=== PATIENT | female | born 1970 | race Two or more races ===

== ENCOUNTER → 2017-01-03 | Outpatient (REF) | payer OTHER ==
[2017-01-03 12:57] LABS: BASO % 0.6 % (0.0-1.0); EOS # 0.1 K/mm3 (0.0-0.50); EOS % 2.3 % (0.0-3.0); LARGE UNSTAINED CELL # 0.2 K/mm3 (0.0-0.4); LARGE UNSTAINED CELL % 2.6 % (0.0-4.0); LYMPH # 2.1 K/mm3 (1.5-4.5); LYMPH % 35.3 % (24.0-44.0); MEAN CORPUSCULAR HEMOGLOBIN 24.9 pg (27.0-33.0); MEAN CORPUSCULAR HGB CONC 32.1 g/dl (32.0-36.5); MEAN CORPUSCULAR VOLUME 77.6 fl (80.0-96.0); MONO # 0.3 K/mm3 (0.0-0.8); MONO % 5.2 % (0.0-5.0); NEUTROPHILS # 3.2 K/mm3 (1.8-7.7); PLATELET COUNT, AUTOMATED 305 k/mm3 (150-450); RED CELL DISTRIBUTION WIDTH 13.3 % (11.5-14.5)
[2017-01-03 13:00] LABS: ALBUMIN 3.9 GM/DL (3.2-5.2); ALBUMIN/GLOBULIN RATIO 1.26 (1.00-1.93); ALKALINE PHOSPHATASE 75 U/L (45-117); ALT/SGPT 29 U/L (12-78); ANION GAP 7 MEQ/L (8-16); AST/SGOT 18 U/L (15-37); BILIRUBIN,TOTAL 0.5 MG/DL (0.2-1.0); BLOOD UREA NITROGEN 10 MG/DL (7-18); CALCIUM LEVEL 9.6 MG/DL (8.5-10.1); CARBON DIOXIDE LEVEL 31 MEQ/L (21-32); CHLORIDE LEVEL 105 MEQ/L (98-107); CHOLESTEROL LEVEL 220 MG/DL (<200); CREATININE FOR GFR 0.74 MG/DL (0.55-1.02); GLOMERULAR FILTRATION RATE > 60.0 (>58); GLUCOSE, FASTING 94 MG/DL (70-105); POTASSIUM SERUM 4.5 MEQ/L (3.5-5.1); SODIUM LEVEL 143 MEQ/L (136-145); TRIGLYCERIDES LEVEL 122 MG/DL (<150)
== END ==
LOC: M SFHCADAM 11:12
PROVIDERS: ATTEND Family Medicine
DX: Z23 Encounter for immunization (principal); R73.01 Impaired fasting glucose

== ENCOUNTER → 2017-09-28 | Outpatient (REF) | payer OTHER | LOC: M SFHCLERA 18:36 | PROVIDERS: ATTEND Physician Assistant | DX: J02.9 Acute pharyngitis, unspecified (principal) ==

== ENCOUNTER 2019-01-07 10:19 | Observation (INO) | payer MEDICAID, SELFPAY ==
[~2019-01-07] VITALS: Ht 152.4 cm; Wt 86.4 kg
--- NOTE | 2019-01-07 10:52 | REP ---
CT Head without contrast HISTORY: Infarction COMPARISON: 04/18/2011 There is no intraparenchymal hemorrhage, acute infarct, mass or midline shift. The ventricular system is normal in appearance. There is no extra cerebral collection. There is no fracture. The visualized sinuses are clear. IMPRESSION: There is no intracranial lesion. Electronically Signed by Se Curran MD 01/07/2019 10:44 A
[2019-01-07 11:14] LABS: BASO # 0.1 10^3/uL (0.0-0.2); BASO % 0.8 % (0.0-1.0); EOS # 0.1 10^3/uL (0.0-0.50); EOS % 1.6 % (0.0-3.0); HEMATOCRIT 38.8 % (36.0-47.0); HEMOGLOBIN 12.7 g/dl (12.0-15.5); LYMPH # 2.2 10^3/uL (1.5-4.5); LYMPH % 34.3 % (24.0-44.0); MEAN CORPUSCULAR HEMOGLOBIN 26.3 pg (27.0-33.0); MEAN CORPUSCULAR HGB CONC 32.7 g/dl (32.0-36.5); MEAN CORPUSCULAR VOLUME 80.3 fl (80.0-96.0); MONO # 0.6 10^3/uL (0.0-0.8); NEUTROPHILS # 3.4 10^3/uL (1.8-7.7); NEUTROPHILS % 52.8 % (36.0-66.0); PLATELET COUNT, AUTOMATED 287 10^3/uL (150-450); RED BLOOD COUNT 4.83 10^6/uL (4.00-5.40); WHITE BLOOD COUNT 6.4 10^3/uL (4.0-10.0)
[2019-01-07 11:25] LABS: INR 0.92; PROTHROMBIN TIME 12.5 SECONDS (12.1-14.4)
[2019-01-07 11:26] LABS: PARTIAL THROMBOPLASTIN TIME 32.6 SECONDS (25.4-37.6)
[2019-01-07] MEDS ORDERED: NS 1,000 ML IV SCH (11:28)
[2019-01-07] MEDS ORDERED: METOCLOPRAMIDE INJ 10MG/2ML VIAL (J2765) IV ONE (11:30)
--- NOTE | 2019-01-07 11:40 | REP ---
CHEST PA: 01/07/2019 COMPARISON: 06/06/2011 CLINICAL HISTORY: CVA. Lung stone are well inflated and clear. The heart, mediastinal and hilar contours are normal. The aorta and airway intact. Minor degenerative spurring in the thoracic spine. No free air under the diaphragm. IMPRESSION: 1. No acute infiltrate, effusion, edema, or other significant finding. Electronically Signed by Stan Mason MD 01/07/2019 02:22 P
[2019-01-07 11:52] LABS: BLOOD UREA NITROGEN 13 MG/DL (7-18); CARBON DIOXIDE LEVEL 27 MEQ/L (21-32); CHLORIDE LEVEL 106 MEQ/L (98-107); CK-MB VALUE MASS < 1.0 NG/ML (<3.6); CPK CREATINE PHOSPHOKINASE 25 U/L (26-192); CREATININE FOR GFR 0.66 MG/DL (0.55-1.30); GLOMERULAR FILTRATION RATE > 60.0 (>51); GLUCOSE, FASTING 85 MG/DL (70-100); POTASSIUM SERUM 4.2 MEQ/L (3.5-5.1); SODIUM LEVEL 139 MEQ/L (136-145); TROPONIN I < 0.02 NG/ML (< 0.10)
[2019-01-07] MEDS ORDERED: ASPIRIN 325 MG TAB PO ONE (12:30)
[2019-01-07] MEDS ORDERED: BIOT1CAP2 PO (13:00)
[2019-01-07] MEDS ORDERED: FISH1000 PO (13:00)
[2019-01-07] MEDS ORDERED: [UNRECOGNIZED DRUG - CODE] PO (13:00)
[2019-01-07] MEDS ORDERED: ACET500T15 PO (13:00)
[2019-01-07] MEDS ORDERED: VITMTA PO (13:00)
--- NOTE | 2019-01-07 15:49 | REP ---
MRA BRAIN WITHOUT CONTRAST: HISTORY: Infarction. 3D hczw-ta-[id number] MR angiography was performed at the level of the koi of [place]. There is no aneurysm, arteriovenous malformation or atherosclerotic lesion. Major intracranial vessels are patent. The vertebral arteries are equal in size. IMPRESSION: Normal MRA brain. Electronically Signed by Se Curran MD 01/07/2019 03:54 P
--- NOTE | 2019-01-07 16:00 | REP ---
MR BRAIN WITHOUT CONTRAST: HISTORY: Infarction. COMPARISON: CT 01/07/2019. Several punctate areas of increased signal intensity on T2-weighted images are present in the subcortical white matter of the left frontal and parietal lobes. These is no intraparenchymal hemorrhage, infarct, mass, or midline shift. The sella turcica is empty. The ventricular system is normal in appearance. There is no extracerebral collection. The sinuses are clear. IMPRESSION: Minimal small vessel ischemic disease. Electronically Signed by Se Curran MD 01/07/2019 04:02 P
[2019-01-07] MEDS ORDERED: TROPICAMIDE 1% OPHTH SOLN 2ML OS ONE (17:00)
[2019-01-07] MEDS: PROPARACAINE 0.5% OPHTH SOL 15ML OS ONE (17:00)
[2019-01-07] MEDS ORDERED: PHENYLEPHRINE 2.5% OPHTH SOL 2ML OS ONE (17:00)
--- NOTE | 2019-01-07 18:15 | ECGEPIP ---
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
[2019-01-07] MEDS ORDERED: ONDANSETRON 4 MG TAB (S0181) PO PRN (18:30)
--- NOTE | 2019-01-07 18:40 | CR ---
DATE OF CONSULTATION: 01/07/2019 ROOM: Emergency room (ER). HISTORY OF CHIEF COMPLAINT: Ms. Bejarano has had a 5-week history of constant headaches, usually at the back of the head, sometimes lateralizing to the side or pressure behind the eye. She normally takes Tylenol [id number] for this. She has had a 4-day history of vision loss in the left eye. She describes this as the vision getting very blurry, like looking through ice on a windshield, and then it went completely black. She has noticed decreased vision, where the visual field is black on the lateral aspect of the left visual field. She has pain on moving the eye horizontally, more so on left gaze than on right gaze. She has no neurological deficits, such as weakness, numbness, or slurred speech. PAST OCULAR HISTORY: Wears glasses. Negative for significant injury disease or surgery. PAST MEDICAL HISTORY: Previously diagnosed with hypertension, high cholesterol. After losing 50+ pounds, the hypertension and high cholesterol normalized. Classical migraine headaches previously treated with Botox injections. MEDICATIONS: Please refer to the chart. Tylenol [id number]. ALLERGIES: PENICILLIN, which causes a rash. On examination, the patient noticed that the vision in the left eye has improved. The visual acuity without correction: Right eye: 20/50, left eye: 20/50-. Pupils: Round, regular, and reactive to light. No obvious relative afferent pupillary defect present. Visual stone to confrontation, both eyes: Full. External examination, both eyes: Involutional dermatochalasis, upper eyelids. Normal lids, lashes, conjunctivae, sclerae. Cranial nerve function: III, IV, and VII intact bilaterally. Red color perception test shows the left eye is 30% less intense as the right eye. Brightness color perception test shows the left eye is 50% less intense as the right eye. Intraocular pressure: Both eyes: Digitally soft to palpation. Slit lamp examination: Cornea: Both eyes: Clear. Anterior chamber: Both eyes: Deep and quiet. Iris: Both eyes: Normal. Lens: Both eyes: Clear. Fundal examination: Disc: Right eye: Normal. Left eye: edema 2+, hyperemia, 2+, inferior optic disc hemorrhage at 6 o'clock position. Both eyes: Normal. Blood vessels: Both eyes: Normal. Peripheral retina: Both eyes: Normal. The MRI scan of the brain showed small-vessel disease. IMPRESSION 1. Optic neuritis, left eye. 2. Complex migraine phenomenon. PLAN: I discussed the findings with Ms. Bejarano and indicated to her that her vision loss is a combination of complex migraine, which seems to be better, and therefore the visual acuity and the visual field has improved. The other component is an optic neuritis or inflammation of the left eye. This patient should be treated with Solu-Medrol intravenously. Neurology, Dr. Knox, will initiate this treatment. I mentioned to her there is an association between optic neuritis and multiple sclerosis. The patient on discharge should be followed up by an cork molder. RADHA
[2019-01-07] MEDS ORDERED: methylPREDNISolone 1,000 MG, VIAL MATE ADAPTER 1 EACH in D5W 250 ML IV SCH ×2 (19:00→20:00)
--- NOTE | 2019-01-07 19:22 | HPE ---
DATE OF ADMISSION: 01/07/2019 My preceptor for this encounter is Dr. Lancaster PRIMARY CARE PROVIDER: None. CHIEF COMPLAINT: Left eye vision loss. HISTORY OF PRESENT ILLNESS: This is a 48-year-old female who states that she started having headaches about 5 weeks ago. She has a history of migraines, and states that these were not migraines, but they were some of the worst headaches that she has had. She started noticing left eye vision loss on Friday right after work. She though it was just part of her migraine. She also states that her left eye has been painful since Friday morning and it especially hurts to move it. She states that her headaches are some of the worst non-migraine headaches that she has had. She states that her vision is blurry and when she had complete loss of her vision, it was accompanied by blue sparkles. She has had some nausea and vomiting as well as a decreased appetite. She states that she feels like she had her muscles lock up a little bit last week and felt very stiff. This was accompanied by some rigors and fevers with sweats. She thinks that she had the flu because that has been going around at work. She has also had some loss of balance, which she thinks is due to some lightheadedness as she had almost fallen twice at work. About 2 months ago, she bashed the right side of her head at work. She hit her head on an overhanging beam while she was moving stuff from one part of the [employer] to another. Otherwise she denies any numbness, tingling, loss of consciousness, diarrhea, or constipation. REVIEW OF SYSTEMS: Constitutional: Denies any changes in weight. Admits to a remote history of fevers, chills, and night sweats. HEENT: Positive for a left visual field deficit, headaches. Denies floaters or feeling like a curtain got pulled down, runny nose, epistaxis, sinus pain, tinnitus, sore throat or odynophagia. Cardiovascular: Denies any chest pain, shortness of breath, edema, orthopnea, paroxysmal nocturnal dyspnea (PND), palpitations. Respiratory: Denies cough, sputum production, wheezes, hemoptysis or shortness of breath. Gastrointestinal: Positive for some nausea and vomiting. Denies any abdominal pain, difficulty swallowing, diarrhea, constipation, obstipation, hematemesis, hematochezia, melena or tenesmus. Genitourinary: Denies incontinence, dysuria, hematuria, nocturia, polyuria, hesitancy or dribbling. Musculoskeletal: Remote history of stiffness last week and feeling like her muscles had locked up. Otherwise denies any joint swelling, crepitus or arthritis. Integumentary: Denies any new rashes, lesions striae, pruritus or wounds. Neurologic: Positive for vision loss as described above. Denies any changes to smell, hearing or taste. Denies history of seizures, paresthesias, numbness, limb weakness. Positive for migraine headaches and headache as described above. Psychiatric: Denies any depression, anxiety, paranoia, anhedonia or episodes of fozia. Endocrine: Denies mood swings, tremors, diarrhea, palpitations, constipation, dry skin, or polydipsia. Hematologic: Denies any anemia, purpura, petechiae, easy bruising or bleeding. Lymphatic: Denies any new lumps or bumps anywhere. PAST MEDICAL HISTORY: She has a past history of drug use, quit 18 years ago. Insomnia. Migraines. HOME MEDICATIONS: - Tylenol 500 mg as needed for pain - biotin - fish oil - garlic - multivitamin. SURGICAL HISTORY: She had tubal ligation 21 years ago. FAMILY HISTORY: As far she knows, her mother is healthy. Her father has diabetes and her father's family has a history of leukemia. Her father also has hypertension. All of her kids are alive and healthy. ALLERGIES: PENICILLIN gives her hives. 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 She does not drink, smoke tobacco or use drugs. 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 Her last tattoo was in January of 2018 and she lives with a boyfriend. PHYSICAL EXAMINATION: Vital Signs: Temperature 97.8, pulse 71, respiratory rate 16, blood pressure 137/77, pulse oximetry is 99% on room air. General: This is a middle-aged female in no acute distress who is sitting upright in the emergency room. HEENT: Atraumatic, normocephalic. Mucous membranes are moist. The patient has her own teeth and dentition is fair. Extraocular eye movements are intact. Pupils are equal, round and reactive to light. Neck: No lymphadenopathy. Neck is supple and nontender. Lungs: Clear to auscultation bilaterally. No wheezes, rhonchi or rales. Heart: Regular rate and rhythm. No murmurs, gallops or rubs. Abdomen: Obese, normoactive bowel sounds, nontender to palpation in all four quadrants. Organomegaly is difficult to assess due to the patient's obesity. Back: No structural deformities. No costovertebral angle (CVA) tenderness bilaterally. Extremities: No clubbing, cyanosis or edema. Pulses are 2+ and brisk in all four extremities. Skin: No rashes, lesions or wounds. Neurologic: Cranial nerves II-XII are grossly intact. There are no focal deficits noted. The patient does have exquisite pain with movement of the left eye, especially into the left lateral visual field. There is a visual field defect in the patient's left lateral vision. Visual acuity was 20/400 per the nursing staff. Muscle strength is 5/5 in all four extremities. Her reflexes were symmetric and 2/4 in all four extremities. The patient has normal cbgt-hr-hfsh and mmljny-ky-ulic testing. Romberg sign was negative. There was no pronator drift. LABORATORY DATA CBC: WBC 6.4, hemoglobin 12.7, hematocrit 38.8, platelets 287. Chemistry: Sodium 139, potassium 4.2, chloride 106, carbon dioxide 27, BUN 13, creatinine 0.66, fasting glucose 85, calcium 9.0, creatine kinase 25, CK-MB less than 1.0, troponin less than 0.02. Coagulation: PT 12.5, INR 0.92, APTT 32.6. IMAGING: Head CT was negative for any intracranial lesions. Chest x-ray was negative for any acute disease process. Brain MRI showed minimal small vessel ischemic disease. Brain MRA was normal. EKG showed sinus bradycardia at 59 beats per minute with a normal axis. ASSESSMENT: This is a 48-year-old female who has had headaches for about 5 weeks and had sudden onset vision loss on Friday with complete vision loss today. PLAN: 1. Acute left sided vision loss. The patient was seen by Dr. Rosales in the emergency department who did a dilated pupil exam on her and has diagnosed the patient with optic neuritis, but cannot rule a complex migraine. I also spoke with Dr. Knox from neurology who would like an MRI of the orbit for the optic neuritis as well as testing for lupus, Sjogren's syndrome, and NMO IgG autoantibodies. Once these have been done, will start Solu-Medrol 1 gram every 24 hours for 3 days to treat the optic neuritis. 2. History of migraines. After speaking with Dr. Knox, the steroids that we will put her on for optic neuritis, may break her status migrainosus. He will see the patient in the morning. We really appreciate his input. 3. Optic neuritis. The patient was evaluated by Dr. Rosales who recommended 1 gram of Solu-Medrol every 24 hours for [address] Rosales also mentioned that the patient's with optic neuritis are at risk for multiple sclerosis, though the MRI did not show any plaques. Her chance of developing multiple sclerosis is about 85%, and he recommends that she followup outpatient with [facility]. This is possibly post viral, based on history. 4. Deep vein thrombosis (DVT) prophylaxis. Thromboembolism deterrents (TEDs) and sequentials. DISPOSITION: The patient will be admitted to observation to Dr. Rosario's service starting a 0700 hours on 01/08/2019. We will have physical therapy evaluate her as well with the sudden onset of left-sided vision loss. Again, my preceptor for this encounter is Dr. Lancaster. My faculty preceptor for this patient encounter was physically present during the encounter and was fully available. All aspects of the patient interview, examination, medical decision making process, and medical care plan development were reviewed and approved by the faculty preceptor. The faculty preceptor is aware and concurs with the plan as stated in the body of this note and will attest to such by his/her cosignature. I have both independently examined this patient as well as reviewed the H&P. I have discussed in detail with the resident the findings and plan of treatment as documented in the resident's note- MD RADHA Hampton
[2019-01-07] MEDS ORDERED: PROHANCE 279.3MG/ML 15ML VIAL (A9576) As Ordered ONE (19:39)
[2019-01-07] MEDS ORDERED: PROHANCE 279.3MG/ML 5ML VIAL (A9576) As Ordered ONE (19:39)
[2019-01-07] MEDS ORDERED: methylPREDNISolone INJ 40 MG/1 ML VIAL (J2920) IV SCH (20:00)
--- NOTE | 2019-01-07 20:50 | REPVR ---
EXAM: MR Orbit Without and With Contrast EXAM DATE/TIME: 01/07/2019 6:29 PM CLINICAL HISTORY: 48 years old, female; Signs and symptoms; Visual changes or disturbances; Sudden loss of vision; Patient HX: Vision loss left eye; Additional info: Optic neuritis CONTRAST: Contrast Material: 17 ml of PROHANCE; Contrast Route: IV TECHNIQUE: MR Orbit was performed without and with intravenous contrast. COMPARISON: No relevant prior studies available. FINDINGS: Orbits: Normal. No abnormal enhancement or enlargement of the optic nerves. Sinuses: Unremarkable. No air-fluid levels. Sella: There is an 'empty sella' with absent diaphragmatic sellae and downward displacement of a flattened pituitary gland. Soft tissues: Unremarkable. IMPRESSION: Essentially unremarkable examination. Electronically signed by: Steve Bruno On 01/07/2019 20:50:09 PM
[2019-01-07 21:20] VITALS: BP 122/79
[2019-01-07] MEDS: ACETAMINOPHEN TAB 650MG DOSE (2X325MG) PO PRN (21:38)
[2019-01-08 06:00] VITALS: BP 134/68
[2019-01-08 06:13] LABS: HEMATOCRIT 41.5 % (36.0-47.0); HEMOGLOBIN 13.4 g/dl (12.0-15.5); MEAN CORPUSCULAR HEMOGLOBIN 25.7 pg (27.0-33.0); MEAN CORPUSCULAR HGB CONC 32.3 g/dl (32.0-36.5); MEAN CORPUSCULAR VOLUME 79.7 fl (80.0-96.0); PLATELET COUNT, AUTOMATED 312 10^3/uL (150-450); RED BLOOD COUNT 5.21 10^6/uL (4.00-5.40); WHITE BLOOD COUNT 5.4 10^3/uL (4.0-10.0)
[2019-01-08 06:34] LABS: BLOOD UREA NITROGEN 14 MG/DL (7-18); CALCIUM LEVEL 9.1 MG/DL (8.5-10.1); CARBON DIOXIDE LEVEL 26 MEQ/L (21-32); CHLORIDE LEVEL 108 MEQ/L (98-107); CREATININE FOR GFR 0.78 MG/DL (0.55-1.30); GLOMERULAR FILTRATION RATE > 60.0 (>51); GLUCOSE, FASTING 157 MG/DL (70-100); POTASSIUM SERUM 4.4 MEQ/L (3.5-5.1); SODIUM LEVEL 138 MEQ/L (136-145)
[2019-01-08] MEDS: ACETAMINOPHEN TAB 650MG DOSE (2X325MG) PO PRN ×2 (08:41→19:55)
[2019-01-08] MEDS ORDERED: FLUBLOK(EGG FREE)(QUAD)INFLUENZA VACC 0.5ML SYRINGE (90682)18YRS&OLDER IM ONE (09:00)
--- NOTE | 2019-01-08 10:42 | IPNPDOC ---
Text Note Date of Service The patient was seen on 01/08/19. NOTE Subjective: Patient is seen at bedside, she is working with physical therapy. She states that her vision has somewhat improved, though she is still missing the central field in her left eye vision. She describes that as a gak[place] of black in the middle of her visual field. She states that some of her lateral vision has been restored. She is feeling much better overall today, as her headache has improved. She denies any fevers, chills, nausea, vomiting, diarrhea, constipatio n, shortness of breath, or chest pain. Objective: Vital signs: See below Gen.: Middle-aged female in no acute distress, sitting on the side of her bed, working with physical therapy HEENT: A dramatic, normocephalic. Mucous members are moist. Extraocular eye movements are intact. Pupils equal, round and reactive to light. Heart: Regular rate and rhythm. No murmurs, gallops or rubs Lungs: Clear to auscultation bilaterally. No wheezes, rhonchi or rales Abdomen: Obese, normal active bowel sounds, nontender to palpation Neuro: Cranial nerves II through XII are grossly intact. No focal deficits are noted. Patient does have visual field defect in her left eye central visual field. Assessment: 48-year-old female with a history of headaches and sudden onset of vision loss compatible with an acute optic neuritis Plan: 1. Acute optic neuritis. Patient is on day #2 of steroids. She will get a total of 3 days of 1 g Solu-Medrol, and then have a rapid steroid taper. Dr. Stacy Gold was consulted, we appreciate his input. She will have to follow up with the [facility] outpatient. Dr. Knox from neurology has also been consulted, we appreciate his input. Antibody studies are pending. As there is an 85% correlation with multiple sclerosis, she will probably need to be further evaluated for this, and potentially follow up with the multiple sclerosis clinic. She has done well with physical therapy in the setting of acute vision loss. 2. History of migraines. Patient states that her headache is much better today. She will continue steroids. Dr. Knox will see her this evening. 3. DVT prophylaxis. TEDs and sequentials. Disposition: Pending clinical improvement, IV steroids VS,Fishbone, I+O VS, Fishbone, I+O Laboratory Tests 01/07/19 10:41 Red Blood Count 4.83, Mean Corpuscular Volume 80.3, Mean Corpuscular Hemoglobin 26.3 L, Mean Corpuscular Hemoglobin Concent 32.7, Red Cell Distribution Width 13.2, Neutrophils (%) (Auto) 52.8, Lymphocytes (%) (Auto) 34.3, Monocytes (%) (Auto) 10.0 H, Eosinophils (%) (Auto) 1.6, Basophils (%) (Auto) 0.8, Neutrophils # (Auto) 3.4, Lymphocytes # (Auto) 2.2, Monocytes # (Auto) 0.6, Eosinophils # (Auto) 0.1, Basophils # (Auto) 0.1, Calcium Level 9.0, Total Creatine Kinase 25 L 01/08/19 05:53 Red Blood Count 5.21, Mean Corpuscular Volume 79.7 L, Mean Corpuscular Hemoglob in 25.7 L, Mean Corpuscular Hemoglobin Concent 32.3, Red Cell Distribution Width 13.1, Calcium Level 9.1 Vital Signs Date Time Temp Pulse Resp B/P (MAP) Pulse Ox O2 Delivery O2 Flow Rate FiO2 01/08/19 06:00 98.5 61 18 134/68 (90) 94 01/07/19 19:01 Room Air I&O- Last 24 Hours up to 6 AM 01/08/19 06:00 Intake Total 843 ml Balance 843 ml GME ATTESTATION GME ATTESTATION My faculty preceptor for this patient encounter was physically present during the encounter and was fully available. All aspects of the patient interview, examination, medical decision making process, and medical care plan development were reviewed and approved by the faculty preceptor. The faculty preceptor is aw are and concurs with the plan as stated in the body of this note and will attest to such by his/her cosignature. SHAHZAD SPAULDING DO Jan 08, 2019 10:42
[2019-01-08 14:00] VITALS: BP 125/67
[2019-01-08] MEDS ORDERED: methylPREDNISolone INJ 125 MG/2 ML VIAL (J2930) IV SCH (14:00)
[2019-01-08] MEDS ORDERED: methylPREDNISolone 1,000 MG, VIAL MATE ADAPTER 1 EACH in D5W 250 ML IV SCH (14:00)
[2019-01-08 22:00] VITALS: BP 132/67
[2019-01-09 06:00] VITALS: BP 118/66
--- NOTE | 2019-01-09 08:12 | CR ---
DATE OF CONSULTATION: 01/08/2019 REFERRING PHYSICIAN: Dr. Lancaster REASON FOR CONSULTATION: Left eye vision loss. HISTORY OF PRESENT ILLNESS: Gilma Bejarano is a 48-year-old woman who has history of chronic migraines. She saw a neurologist in [place] for 5 years. She tried Topamax, amitriptyline, Valium, nortriptyline for migraines for a few years, which caused side effects. She was getting Botox when she was in [place]. She used Botox for 2 years. She lost her insurance. She moved to [facility] a couple of years ago. She has headaches and migraines 15-20 days per month. Headaches are pressure or throbbing in character, 5-10/10 in intensity with photophobia, phonophobia, nausea and dizziness. The patient states that her headaches got even worse 5 weeks ago. She had daily headaches over last 5 weeks. Headaches were left frontal and temporal 5-10/10 in intensity and she had flu and cold-like symptoms off and on over last 1 month. Friday at work she developed blurred vision, which became worse on Friday and worst on Friday. On Friday, her vision kept going dark and then suddenly became black in left eye. It changed to a edcker mist yesterday in the afternoon, but again became black last night. This morning she feels it is opposite. She has a black dot in the middle and sees decker shadows around it. She has been feeling soreness and pain in her left eye, which is 10/10 in intensity. Her left eye is tender to touch. She has pain when she moves her left eye. She is using a left eye patch because her left eye is sensitive to light. She was seen by Dr. Rosales, asset protection lead in emergency department and he performed detailed eye examination. His eye examination was reported as 2+ hyperemia and inferior optic disk hemorrhage at 6 o'clock position and this is also 2+. He diagnosed her with left eye optic neuritis and complex migraine phenomenon. He recommended patient to be admitted and get 3 days of intravenous steroids. The patient denies dysphagia, dysarthria, diplopia, urinary incontinence, falls or loss of consciousness. PAST MEDICAL HISTORY: 1. Chronic migraines. 2. Insomnia. 3. History of drug use, amphetamines, which she quit 18 years ago. 4. Tubal ligation. HOME MEDICATIONS: - Tylenol - Biotin - fish oil - garlic - multivitamin FAMILY HISTORY: No family history of neurological disease, including multiple sclerosis. Father with history of diabetes. Father also has hypertension. ALLERGIES: PENICILLIN. SOCIAL HISTORY: Patient works at [employer]. She denies smoking, alcohol or illicit drugs. 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 She lives with boyfriend. REVIEW OF SYSTEMS: All systems were reviewed and found to be noncontributory except as mentioned is history of present illness. PHYSICAL EXAMINATION: Temperature 98.9, pulse 94, respiratory 18, blood pressure 125/67, 96% saturation on room air. Heart regular rate and rhythm. Lungs clear to auscultation. Abdomen soft, nontender, nondistended. No pedal edema. No musculoskeletal abnormalities. No rash. No signs of meningeal irritation. No dysmetria or ataxia. Patient is awake, alert, oriented to place, person and time. Normal speech, comprehension and repetition. Extraocular muscles are intact. No facial weakness. Recent and distant memory is intact. There is no nystagmus. Patient had a complete eye examination by Dr. Rosales, which is documented in his notes. He noted that patient has decreased color perception in left eye. Right eye visual acuity was 20/50 and left eye visual acuity was 20/15 minus. He did not notice any APD in either eyes. 5/5 strength in all four extremities. Deep reflexes 2+ throughout. Normal sensation throughout. Gait is normal. DIAGNOSTIC STUDIES: MRI scan of brain showed a couple of punctate white matter foci such as seen in migraines. MRI of orbits with and without contrast was within normal limits. MRA brain was within normal limits. ASSESSMENT: 1. Left eye visual loss with pain. 2. There is concern for left optic neuritis. 3. Rule out left ischemic optic neuropathy and temporal arteritis. 4. History of chronic migraines and patient failed multiple medications and used Botox when she was under care of neurologist in [place]. PLAN: 1. Check ESR, CRP, IBAN, NMO antibody. 2. Solu-Medrol 1000 mg IV daily for 3 days, followed by prednisone 60 mg and taper off oral prednisone over 10 days. Close followup with ophthalmology. In the absence of brain lesions, risk of multiple sclerosis would be low. MTDD
[2019-01-09] MEDS ORDERED: methylPREDNISolone 1,000 MG, VIAL MATE ADAPTER 1 EACH in D5W 250 ML IV ONE (09:00)
[2019-01-09] MEDS ORDERED: methylPREDNISolone INJ 125 MG/2 ML VIAL (J2930) IV ONE (09:00)
[2019-01-09] MEDS ORDERED: PRED10TA2 PO (10:52)
--- NOTE | 2019-01-10 14:09 | DSES ---
DATE OF ADMISSION: 01/07/2019 DATE OF DISCHARGE: 01/09/2019 CONSULTANTS: Dr. Hao Gold, ophthalmology. Dr. Quinn Knox of neurology. Procedures: None. DISCHARGE DIAGNOSIS 1. Left eye visual loss with pain. 2. Probable left optic neuritis. 3. Chronic migraines. HOSPITAL COURSE This is a 48-year-old female who started having headaches approximately 5 weeks prior to admission. She started noticing left eye vision loss on Friday right after work and thought it was just part of her headache. Her left eye developed pain on Friday as well, especially with lateral horizontal movement. She started having complete vision loss on the day of admission which was accompanied by blue sparkles. She was seen in the emergency department by Dr. Hao Gold who evaluated the patient in the eye room and diagnosed her with left optic neuritis. Neurology was also consulted and recommended testing for lupus, Sjogren's syndrome and NMO IgG autoantibodies. She was admitted and received 1 gram of Solu-Medrol every 24 hours for 3 days to treat optic neuritis. She was evaluated by physical an occupational therapy which she passed with flying colors. She was deemed safe for discharge on 01/09/2019 and was discharged home on a steroid taper with followup for ophthalmology, neurology to establish with a primary care provider and for an appointment with general surgery for temporal artery biopsy to rule out temporal arteritis. SUBJECTIVE The patient is feeling much better today, her headaches have diminished significantly. She is still complaining of left visual field loss, but understands that this may take a while to come back. She denies any nausea, vomiting, chest pain, shortness of breath, fevers, chills or diarrhea. She is anxious to go home. OBJECTIVE Vitals: Temperature 98.6, pulse 80 and regular, respiratory rate 16, blood pressure 118/66, pulse ox 96% on room air. General: The patient is awake, alert and oriented, in no acute distress. Sitting in bed. HEENT: Atraumatic, normocephalic. Mucous membranes are moist. Extraocular eye movements are intact. Pupils are equal, round and reactive to light. Heart: Regular rate and rhythm. No murmurs, gallops or rubs. Lungs: Clear to auscultation bilaterally. No wheezes, rhonchi or rales. Abdomen: Obese, normoactive bowel sounds, nontender to palpation. Neuro: Cranial nerves II-XII grossly intact. No focal deficits were noted. Muscle strength of 5/5 throughout. Reflexes are 2+ and symmetric bilaterally. The patient does have a visual field defect in her left eye's central vision. LABORATORY DATA CBC: WBC 5.4, hemoglobin 13.4, hematocrit 41.5, platelets 312. Chemistry: Sodium 138, potassium 4.4, chloride 108, carbon dioxide 26, BUN 14, creatinine 0.78, fasting glucose 159, calcium 9.1. Inflammatory markers CRP was 2.10, ESR was 52. Coagulation: PT 12.5, INR 0.92, APTT 32.6. Immune allergy testing: IBAN screen, SSA, SSB, double stranded DNA, neuromyelitis, optic IgG, saliva protein 1 AGG and saliva protein 1 IgA are also pending. IMAGING STUDIES Head CT from 01/07/2019 showed no intracranial lesion. Chest x-ray from 01/07/2019 showed no acute infiltrate, effusion, edema or other significant findings. Brain MRI without contrast from 01/07/2019 showed minimal small vessel ischemic disease. MRA from 01/07/2019 was normal. MRI orbit with and without contrast was normal. 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 No other acute finding. ASSESSMENT 48-year-old female with history of headaches and sudden onset vision loss compatible with acute optic neuritis, differential includes complex migraine, temporal arteritis, lupus and Sjogren's syndrome. PLAN 1. Acute optic neuritis. The patient has had 3 days of steroids. We will have a slow steroid taper that will consist of prednisone 60 mg x3 days, 50 mg x3 days, 40 mg x3 days, 30 mg x3 days and 20 mg x3 days until she is seen by Dr. Knox. She will also have to follow up with [facility]. She will follow up with Dr. Knott on Friday for a left temporal artery biopsy to evaluate for her temporal arteritis. She also needs to establish at the [facility] clinic for primary care. Autoantibodies are still pending. 2. History of migraines. Headache is better today. She continues on steroids. DISCHARGE MEDICATIONS: - prednisone 10 mg by mouth taper. 60 mg x3 days, 50 mg x3 days, 40 mg x3 days, 30 mg x3 days, 20 mg x3 days and she should be seen by Dr. Knox before the taper ends. - Tylenol 500 mg by mouth as needed for pain - Biotin 1 capsule daily - fish oil 1 gram by mouth daily - garlic formula 50 mg by mouth daily - multivitamin 1 tablet daily DISPOSITION: Stable. Diet: Regular. ACTIVITY: As tolerated. FOLLOWUP: 1. Establish for primary care of the [facility] clinic this week, Dr. Purdy has availability on Friday afternoon. 2. Dr. Knott on Friday for temporal artery biopsy, please call in the office on Friday. 3. Dr. Knox within 2 weeks. 4. Establish a [facility] for followup of optic neuritis. Greater than 30 minutes was spent on discharge. My faculty preceptor for this patient encounter was physically present during the encounter and was fully available. All aspects of the patient interview, examination, medical decision making process, and medical care plan development were reviewed and approved by the faculty preceptor. The faculty preceptor is aware and concurs with the plan as stated in the body of this note and will attest to such by his/her co-signature.
== END 2019-01-09 13:48 | disposition home or self-care (01) ==
LOC: M ED 10:19 → M ED INP 17:15 → M MSPAV 21:25
PROVIDERS: ADMIT Internal Medicine; ATTEND Internal Medicine
DX: H53.132 Sudden visual loss, left eye (principal); H57.12 Ocular pain, left eye; H46.9 Unspecified optic neuritis; G43.709 Chronic migraine without aura, not intractable, without status migrainosus; G47.00 Insomnia, unspecified; Z88.0 Allergy status to penicillin
CPT/HCPCS: 36415; 70450; 70543; 70544; 70551; 71045; 80048; 82550; 82553; 83520; 85025; 85027; 85610; 85652; 85730; 86038; 86140; 86225; 86235; 90471; 90682; 93005; 93041; 94760; 96361; 96365; 96366; 97161; 99285; A9576; J2765; J2930

== ENCOUNTER → 2019-01-12 | Outpatient (REF) | payer MEDICAID ==
[~2019-01-12] MED LIST: ACET500T15 PO; BIOT1CAP2 PO; FISH1000 PO; PRED10TA2 PO; VITMTA PO; [UNRECOGNIZED DRUG - CODE] PO
== END ==
LOC: M LAB REF 15:34
PROVIDERS: ATTEND Surgery
DX: M31.6 Other giant cell arteritis (principal)

== ENCOUNTER → 2019-03-05 | Outpatient (REF) | payer MEDICAID, OTHER ==
[2019-03-05 18:15] LABS: ALT/SGPT 23 U/L (12-78); BILIRUBIN,TOTAL 0.3 MG/DL (0.2-1.0); BLOOD UREA NITROGEN 11 MG/DL (7-18); C REACTIVE PROTEIN QUANTITATIV 0.43 MG/DL (0.00-0.30); CALCIUM LEVEL 9.5 MG/DL (8.5-10.1); CARBON DIOXIDE LEVEL 27 MEQ/L (21-32); CHLORIDE LEVEL 106 MEQ/L (98-107); GLOMERULAR FILTRATION RATE > 60.0 (>51); GLUCOSE, FASTING 86 MG/DL (70-100); POTASSIUM SERUM 4.5 MEQ/L (3.5-5.1); SODIUM LEVEL 142 MEQ/L (136-145); TOTAL PROTEIN 6.6 GM/DL (6.4-8.2)
[2019-03-05 18:30] LABS: BASO % 0.7 % (0.0-1.0); EOS # 0.1 10^3/uL (0.0-0.50); EOS % 2.2 % (0.0-3.0); HEMATOCRIT 41.6 % (36.0-47.0); HEMOGLOBIN 13.2 g/dl (12.0-15.5); LYMPH # 2.1 10^3/uL (1.5-4.5); LYMPH % 37.8 % (24.0-44.0); MEAN CORPUSCULAR HEMOGLOBIN 26.9 pg (27.0-33.0); MEAN CORPUSCULAR HGB CONC 31.7 g/dl (32.0-36.5); MEAN CORPUSCULAR VOLUME 84.7 fl (80.0-96.0); MONO # 0.6 10^3/uL (0.0-0.8); MONO % 10.1 % (0.0-5.0); NEUTROPHILS # 2.7 10^3/uL (1.8-7.7); PLATELET COUNT, AUTOMATED 309 10^3/uL (150-450); RED BLOOD COUNT 4.91 10^6/uL (4.00-5.40); WHITE BLOOD COUNT 5.5 10^3/uL (4.0-10.0)
[2019-03-06 10:47] LABS: ERYTHROCYTE SEDIMENTATION RATE 7 mm/hr (0-30)
== END ==
LOC: M LABNEURO 09:38
PROVIDERS: ATTEND Psychiatry & Neurology Neurology
DX: R51 Headache (principal)

== ENCOUNTER → 2019-04-28 | Outpatient (CLI) | payer OTHER ==
[2019-04-28 17:58] LABS: HEMOGLOBIN A1c 5.5 %
[2019-04-28 18:07] LABS: CHOLESTEROL LEVEL 208 MG/DL (<200); CHOLESTEROL RISK RATIO 3.466 (<5); FREE T4 1.11 NG/DL (0.76-1.46); HDL CHOLESTEROL 60 MG/DL (>40); LDL CHOLESTEROL 129 MG/DL (<100); NON-HDL-C 148 MG/DL; TRIGLYCERIDES LEVEL 96 MG/DL (<150)
== END ==
LOC: M LAB 16:49
PROVIDERS: ATTEND Internal Medicine
DX: H54.62 Unqualified visual loss, left eye, normal vision right eye (principal); Z00.00 Encounter for general adult medical examination without abnormal findings; R73.03 Prediabetes; E78.5 Hyperlipidemia, unspecified

== ENCOUNTER → 2019-11-20 | Outpatient (CLI) | payer OTHER, MEDICAID ==
[2019-11-20 11:57] LABS: BASO % 0.6 % (0.0-1.0); EOS # 0.1 10^3/uL (0.0-0.5); HEMATOCRIT 43.2 % (36.0-47.0); HEMOGLOBIN 13.4 g/dl (12.0-15.5); LYMPH % 39.2 % (24.0-44.0); MEAN CORPUSCULAR HEMOGLOBIN 26.7 pg (27.0-33.0); MEAN CORPUSCULAR VOLUME 86.2 fl (80.0-96.0); MONO # 0.4 10^3/uL (0.0-0.8); MONO % 7.2 % (0.0-5.0); NEUTROPHILS # 2.6 10^3/uL (1.5-8.5); NEUTROPHILS % 50.8 % (36.0-66.0); PLATELET COUNT, AUTOMATED 269 10^3/uL (150-450); RED BLOOD COUNT 5.01 10^6/uL (4.00-5.40)
[2019-11-20 12:08] LABS: APPEARANCE, URINE CLEAR (CLEAR); BACTERIA, URINE AUTO NEGATIVE (NEGATIVE); BILIRUBIN, URINE AUTO NEGATIVE (NEGATIVE); BLOOD, URINE BLOOD NEGATIVE (NEGATIVE); COLOR, URINE YELLOW (YELLOW); GLUCOSE, URINE (UA) AUTO NEGATIVE (NEGATIVE); KETONE, URINE AUTO NEGATIVE (NEGATIVE); LEUKOCYTE ESTERASE, URINE AUTO NEGATIVE (NEGATIVE); MUCUS, URINE SMALL (NEGATIVE); NITRITE, URINE AUTO NEGATIVE (NEGATIVE); PROTEIN, URINE AUTO NEGATIVE (NEGATIVE); RBC, URINE AUTO 0 /HPF (0-3); SPECIFIC GRAVITY URINE AUTO 1.021 (1.002-1.035); SQUAMOUS EPITHELIAL CELL UR AU 2 /HPF (0-6); UROBILINOGEN, URINE AUTO 0.2 mg/dL (0.0-2.0); WBC, URINE AUTO 0 /HPF (0-3)
[2019-11-20 12:10] LABS: ALBUMIN 3.7 GM/DL (3.2-5.2); ALT/SGPT 17 U/L (12-78); BILIRUBIN,TOTAL 0.6 MG/DL (0.2-1.0); BLOOD UREA NITROGEN 15 MG/DL (7-18); C REACTIVE PROTEIN QUANTITATIV 0.32 MG/DL (0.00-0.30); CALCIUM LEVEL 9.5 MG/DL (8.5-10.1); CARBON DIOXIDE LEVEL 28 MEQ/L (21-32); CHLORIDE LEVEL 108 MEQ/L (98-107); CHOLESTEROL LEVEL 244 MG/DL (<200); CHOLESTEROL RISK RATIO 3.641 (<5); CREATININE FOR GFR 0.74 MG/DL (0.55-1.30); FREE T4 0.95 NG/DL (0.76-1.46); GLOMERULAR FILTRATION RATE > 60.0 (>51); GLUCOSE, FASTING 66 MG/DL (70-100); HDL CHOLESTEROL 67 MG/DL (>40); LDL CHOLESTEROL 164 MG/DL (<100); MAGNESIUM LEVEL 2.8 MG/DL (1.8-2.4); NON-HDL-C 177 MG/DL; POTASSIUM SERUM 4.8 MEQ/L (3.5-5.1); RHEUMATOID FACTOR QUANT < 10.0 IU/ML (<15.0); SODIUM LEVEL 141 MEQ/L (136-145); TOTAL PROTEIN 6.8 GM/DL (6.4-8.2); TRIGLYCERIDES LEVEL 67 MG/DL (<150)
[2019-11-20 12:19] LABS: ERYTHROCYTE SEDIMENTATION RATE 9 mm/hr (0-30)
[2019-11-20 12:33] LABS: HEMOGLOBIN A1c 4.8 %
[2019-11-22 08:59] LABS: TOTAL 25(OH) VITAMIN D 30.7 NG/ML (30.0-100.0)
[2019-11-23 10:07] LABS: CREATININE, URINE 171.4 mg/dL (20.0-300.0)
== END ==
LOC: M LRY 09:27
PROVIDERS: ATTEND Family Medicine
DX: G47.00 Insomnia, unspecified (principal); R51 Headache; M35.00 Sjogren syndrome, unspecified

== ENCOUNTER 2020-06-07 13:01 | Emergency (ER) | payer MEDICAID, OTHER, SELFPAY ==
[~2020-06-07] VITALS: Ht 152.4 cm; Wt 77.9 kg
[2020-06-07 13:02] VITALS: BP 143/79
[2020-06-07] MEDS ORDERED: NAPR220C14 PO (13:08)
[2020-06-07] MEDS ORDERED: FLUORESCEIN OPHTH 1 MG STRIP OD ONE (13:30)
[2020-06-07] MEDS ORDERED: TETRACAINE 0.5% OPHTH SOLN 4ML OD ONE (13:30)
[2020-06-07] MEDS ORDERED: OLOP2.5D3 OD (14:03)
[2020-06-07] MEDS ORDERED: CLAR10CA3 PO (14:03)
== END 2020-06-07 14:15 | disposition home or self-care (01) ==
LOC: M ED 13:01
DX: H10.45 Other chronic allergic conjunctivitis (principal); E78.5 Hyperlipidemia, unspecified; Z79.899 Other long term (current) drug therapy; Z88.0 Allergy status to penicillin

== ENCOUNTER → 2021-02-16 | Outpatient (CLI) | payer OTHER ==
[~2021-02-16] MED LIST changes: +CLAR10CA3 PO; +NAPR220C14 PO; +OLOP2.5D3 OD
[2021-02-16 08:17] LABS: APPEARANCE, URINE CLEAR (CLEAR); BACTERIA, URINE AUTO NEGATIVE (NEGATIVE); BILIRUBIN, URINE AUTO NEGATIVE (NEGATIVE); BLOOD, URINE BLOOD NEGATIVE (NEGATIVE); COLOR, URINE STRAW (YELLOW); GLUCOSE, URINE (UA) AUTO NEGATIVE (NEGATIVE); KETONE, URINE AUTO NEGATIVE (NEGATIVE); LEUKOCYTE ESTERASE, URINE AUTO NEGATIVE (NEGATIVE); NITRITE, URINE AUTO NEGATIVE (NEGATIVE); PROTEIN, URINE AUTO NEGATIVE (NEGATIVE); RBC, URINE AUTO 0 /HPF (0-3); SPECIFIC GRAVITY URINE AUTO 1.001 (1.002-1.035); SQUAMOUS EPITHELIAL CELL UR AU 0 /HPF (0-6); UROBILINOGEN, URINE AUTO 0.2 mg/dL (0.0-2.0); WBC, URINE AUTO 0 /HPF (0-3)
[2021-02-16 08:26] LABS: BASO % 0.8 % (0.0-1.0); EOS # 0.2 10^3/uL (0.0-0.5); EOS % 3.1 % (0.0-3.0); HEMATOCRIT 46.5 % (36.0-47.0); HEMOGLOBIN 14.8 g/dl (12.0-15.5); LYMPH # 2.1 10^3/uL (1.5-5.0); LYMPH % 40.5 % (24.0-44.0); MEAN CORPUSCULAR HEMOGLOBIN 27.6 pg (27.0-33.0); MEAN CORPUSCULAR HGB CONC 31.8 g/dl (32.0-36.5); MEAN CORPUSCULAR VOLUME 86.8 fl (80.0-96.0); MONO # 0.4 10^3/uL (0.0-0.8); MONO % 7.6 % (2.0-8.0); NEUTROPHILS # 2.5 10^3/uL (1.5-8.5); NEUTROPHILS % 47.8 % (36.0-66.0); PLATELET COUNT, AUTOMATED 264 10^3/uL (150-450); RED BLOOD COUNT 5.36 10^6/uL (4.00-5.40); WHITE BLOOD COUNT 5.2 10^3/uL (4.0-10.0)
[2021-02-16 08:47] LABS: ERYTHROCYTE SEDIMENTATION RATE 4 mm/hr (0-30)
[2021-02-16 08:51] LABS: ALBUMIN 3.9 GM/DL (3.2-5.2); ALT/SGPT 21 U/L (12-78); BILIRUBIN,TOTAL 0.4 MG/DL (0.2-1.0); BLOOD UREA NITROGEN 11 MG/DL (7-18); CALCIUM LEVEL 9.6 MG/DL (8.5-10.1); CARBON DIOXIDE LEVEL 32 MEQ/L (21-32); CHLORIDE LEVEL 108 MEQ/L (98-107); CHOLESTEROL LEVEL 233 MG/DL (<200); FREE T4 1.03 NG/DL (0.76-1.46); GLOMERULAR FILTRATION RATE > 60.0 (>51); GLUCOSE, FASTING 75 MG/DL (70-100); HDL CHOLESTEROL 64 MG/DL (>40); LDL CHOLESTEROL 150 MG/DL (<100); MAGNESIUM LEVEL 2.1 MG/DL (1.8-2.4); NON-HDL-C 169 MG/DL; POTASSIUM SERUM 4.6 MEQ/L (3.5-5.1); SODIUM LEVEL 142 MEQ/L (136-145); TOTAL PROTEIN 6.8 GM/DL (6.4-8.2); TRIGLYCERIDES LEVEL 97 MG/DL (<150)
[2021-02-16 11:01] LABS: TOTAL 25(OH) VITAMIN D 36.8 NG/ML (30.0-100.0)
== END ==
LOC: M LAB 07:20
PROVIDERS: ATTEND Family Medicine
DX: G47.00 Insomnia, unspecified (principal); R51.9 Headache, unspecified; M35.00 Sjogren syndrome, unspecified

== ENCOUNTER → 2021-06-23 | Outpatient (CLI) | payer OTHER ==
[2021-06-23 09:29] LABS: BASO % 0.4 % (0.0-1.0); EOS # 0.1 10^3/uL (0.0-0.5); EOS % 1.2 % (0.0-3.0); HEMATOCRIT 42.7 % (36.0-47.0); HEMOGLOBIN 13.7 g/dl (12.0-15.5); LYMPH # 1.7 10^3/uL (1.5-5.0); LYMPH % 29.6 % (24.0-44.0); MEAN CORPUSCULAR HEMOGLOBIN 27.5 pg (27.0-33.0); MEAN CORPUSCULAR HGB CONC 32.1 g/dl (32.0-36.5); MEAN CORPUSCULAR VOLUME 85.7 fl (80.0-96.0); MONO # 0.4 10^3/uL (0.0-0.8); MONO % 7.6 % (2.0-8.0); NEUTROPHILS # 3.4 10^3/uL (1.5-8.5); NEUTROPHILS % 60.8 % (36.0-66.0); PLATELET COUNT, AUTOMATED 240 10^3/uL (150-450); RED BLOOD COUNT 4.98 10^6/uL (4.00-5.40); WHITE BLOOD COUNT 5.7 10^3/uL (4.0-10.0)
[2021-06-23 09:35] LABS: APPEARANCE, URINE CLEAR (CLEAR); BACTERIA, URINE AUTO NEGATIVE (NEGATIVE); BILIRUBIN, URINE AUTO NEGATIVE (NEGATIVE); BLOOD, URINE BLOOD NEGATIVE (NEGATIVE); COLOR, URINE YELLOW (YELLOW); GLUCOSE, URINE (UA) AUTO NEGATIVE (NEGATIVE); KETONE, URINE AUTO NEGATIVE (NEGATIVE); LEUKOCYTE ESTERASE, URINE AUTO NEGATIVE (NEGATIVE); MUCUS, URINE SMALL (NEGATIVE); NITRITE, URINE AUTO NEGATIVE (NEGATIVE); PROTEIN, URINE AUTO NEGATIVE (NEGATIVE); RBC, URINE AUTO 0 /HPF (0-3); SPECIFIC GRAVITY URINE AUTO 1.016 (1.002-1.035); SQUAMOUS EPITHELIAL CELL UR AU 0 /HPF (0-6); UROBILINOGEN, URINE AUTO 0.2 mg/dL (0.0-2.0); WBC, URINE AUTO 1 /HPF (0-3)
[2021-06-23 09:48] LABS: ALBUMIN 3.7 GM/DL (3.2-5.2); ALT/SGPT 25 U/L (12-78); BILIRUBIN,TOTAL 0.4 MG/DL (0.2-1.0); BLOOD UREA NITROGEN 12 MG/DL (7-18); CARBON DIOXIDE LEVEL 29 MEQ/L (21-32); CHLORIDE LEVEL 111 MEQ/L (98-107); CHOLESTEROL LEVEL 216 MG/DL (<200); CHOLESTEROL RISK RATIO 3.661 (<5); CREATININE FOR GFR 0.74 MG/DL (0.55-1.30); FREE T4 0.98 NG/DL (0.76-1.46); GLOMERULAR FILTRATION RATE > 60.0 (>51); GLUCOSE, FASTING 87 MG/DL (70-100); HDL CHOLESTEROL 59 MG/DL (>40); LDL CHOLESTEROL 140 MG/DL (<100); MAGNESIUM LEVEL 2.1 MG/DL (1.8-2.4); NON-HDL-C 157 MG/DL; POTASSIUM SERUM 4.7 MEQ/L (3.5-5.1); SODIUM LEVEL 143 MEQ/L (136-145); TOTAL PROTEIN 6.5 GM/DL (6.4-8.2); TRIGLYCERIDES LEVEL 85 MG/DL (<150)
[2021-06-23 10:03] LABS: ERYTHROCYTE SEDIMENTATION RATE 9 mm/hr (0-30)
[2021-06-25 10:17] LABS: TOTAL 25(OH) VITAMIN D 35.6 NG/ML (30.0-100.0)
== END ==
LOC: M LAB 08:31
PROVIDERS: ATTEND Family Medicine
DX: G47.00 Insomnia, unspecified (principal); R51.9 Headache, unspecified; M35.00 Sjogren syndrome, unspecified

== ENCOUNTER → 2021-07-13 | Outpatient (CLI) | payer OTHER ==
--- NOTE | 2021-07-26 08:36 | REP ---
INDICATION: ENCTR SCREEN MAMMO FOR MALIGNANT NEOPLASM OF BREAST. COMPARISON: There are no priors for comparison. Multiple attempts have been made by the radiology clerical staff to obtain prior examinations. All attempts have been fruitless. TECHNIQUE: Digital screening mammography was carried out bilaterally in the CC and MLO projections. Both 2D and 3D modalities were utilized. Since are no prior examinations for comparison today's examination will be interpreted as the initial screening examination. By history, the patient has no complaints of a palpable breast abnormality or other significant breast complaints. FINDINGS: The breasts are symmetric in size and shape. Scattered dense heterogenous fibroglandular elements are seen bilaterally. There is no evidence of a mass or internal architectural distortion. There are no suspicious calcifications. There is no skin thickening or nipple retraction. The Volpara volumetric breast density pattern is b. IMPRESSION: BIRADS/ACR category 1 negative mammogram. This patient's Tyrer-Cuzick lifetime breast cancer risk assessment score is unknown%. This mammogram was interpreted with the aid of an FDA-approved computer-aided detection system. The patient states she had a clinical breast exam in unknown. The patient letter being requested is M1. RECOMMENDATION: Repeat screening mammography recommended 1 year (for women over 40). <Electronically signed by Efra Caldwell > 07/26/21 [id number]
== END ==
LOC: M WHC 16:45
PROVIDERS: ATTEND Family Medicine
DX: Z12.31 Encounter for screening mammogram for malignant neoplasm of breast (principal)

== ENCOUNTER → 2022-04-14 | Outpatient (CLI) | payer OTHER ==
[2022-04-14 08:52] LABS: APPEARANCE, URINE CLEAR (CLEAR); BACTERIA, URINE AUTO NEGATIVE (NEGATIVE); BILIRUBIN, URINE AUTO NEGATIVE (NEGATIVE); BLOOD, URINE BLOOD NEGATIVE (NEGATIVE); COLOR, URINE STRAW (YELLOW); GLUCOSE, URINE (UA) AUTO NEGATIVE (NEGATIVE); KETONE, URINE AUTO NEGATIVE (NEGATIVE); LEUKOCYTE ESTERASE, URINE AUTO NEGATIVE (NEGATIVE); NITRITE, URINE AUTO NEGATIVE (NEGATIVE); PROTEIN, URINE AUTO NEGATIVE (NEGATIVE); RBC, URINE AUTO 0 /HPF (0-3); SPECIFIC GRAVITY URINE AUTO 1.006 (1.002-1.035); SQUAMOUS EPITHELIAL CELL UR AU 0 /HPF (0-6); UROBILINOGEN, URINE AUTO 0.2 mg/dL (0.0-2.0); WBC, URINE AUTO 0 /HPF (0-3)
[2022-04-14 08:53] LABS: BASO % 0.7 % (0.0-1.0); EOS # 0.1 10^3/uL (0.0-0.5); EOS % 1.8 % (0.0-3.0); HEMATOCRIT 43.2 % (36.0-47.0); LYMPH # 2.3 10^3/uL (1.5-5.0); LYMPH % 42.5 % (24.0-44.0); MEAN CORPUSCULAR HEMOGLOBIN 28.1 pg (27.0-33.0); MEAN CORPUSCULAR HGB CONC 32.4 g/dl (32.0-36.5); MEAN CORPUSCULAR VOLUME 86.7 fl (80.0-96.0); MONO # 0.5 10^3/uL (0.0-0.8); MONO % 8.7 % (2.0-8.0); NEUTROPHILS # 2.5 10^3/uL (1.5-8.5); NEUTROPHILS % 45.9 % (36.0-66.0); PLATELET COUNT, AUTOMATED 255 10^3/uL (150-450); RED BLOOD COUNT 4.98 10^6/uL (4.00-5.40); WHITE BLOOD COUNT 5.4 10^3/uL (4.0-10.0)
[2022-04-14 09:29] LABS: ALBUMIN 3.5 GM/DL (3.2-5.2); ALT/SGPT 24 U/L (12-78); BILIRUBIN,TOTAL 0.4 MG/DL (0.2-1.0); BLOOD UREA NITROGEN 10 MG/DL (7-18); CALCIUM LEVEL 9.9 MG/DL (8.5-10.1); CARBON DIOXIDE LEVEL 31 MEQ/L (21-32); CHLORIDE LEVEL 107 MEQ/L (98-107); CHOLESTEROL LEVEL 233 MG/DL (<200); CHOLESTEROL RISK RATIO 3.477 (<5); CREATININE FOR GFR 0.69 MG/DL (0.55-1.30); FREE T4 0.97 NG/DL (0.76-1.46); GLOMERULAR FILTRATION RATE > 60.0 (>51); GLUCOSE, FASTING 82 MG/DL (70-100); HDL CHOLESTEROL 67 MG/DL (>40); LDL CHOLESTEROL 144 MG/DL (<100); NON-HDL-C 166 MG/DL; POTASSIUM SERUM 4.3 MEQ/L (3.5-5.1); SODIUM LEVEL 143 MEQ/L (136-145); TOTAL PROTEIN 6.7 GM/DL (6.4-8.2); TRIGLYCERIDES LEVEL 108 MG/DL (<150)
[2022-04-16 10:01] LABS: TOTAL 25(OH) VITAMIN D 33.4 NG/ML (30.0-100.0)
== END ==
LOC: M LAB 08:12
PROVIDERS: ATTEND Family Medicine
DX: G47.00 Insomnia, unspecified (principal); R51.9 Headache, unspecified; M35.00 Sjogren syndrome, unspecified; E78.5 Hyperlipidemia, unspecified; E66.9 Obesity, unspecified

== ENCOUNTER → 2023-05-13 | Outpatient (CLI) | payer OTHER ==
[2023-05-13 07:48] LABS: APPEARANCE, URINE CLEAR (CLEAR); BACTERIA, URINE AUTO NEGATIVE (NEGATIVE); BILIRUBIN, URINE AUTO NEGATIVE (NEGATIVE); BLOOD, URINE BLOOD NEGATIVE (NEGATIVE); COLOR, URINE YELLOW (YELLOW); GLUCOSE, URINE (UA) AUTO NEGATIVE (NEGATIVE); KETONE, URINE AUTO NEGATIVE (NEGATIVE); LEUKOCYTE ESTERASE, URINE AUTO 1+ (NEGATIVE); MUCUS, URINE SMALL (NEGATIVE); NITRITE, URINE AUTO NEGATIVE (NEGATIVE); PROTEIN, URINE AUTO NEGATIVE (NEGATIVE); RBC, URINE AUTO 0 /HPF (0-3); SPECIFIC GRAVITY URINE AUTO 1.014 (1.002-1.035); SQUAMOUS EPITHELIAL CELL UR AU 2 /HPF (0-6); UROBILINOGEN, URINE AUTO 0.2 mg/dL (0.0-2.0); WBC, URINE AUTO 3 /HPF (0-3)
[2023-05-13 07:51] LABS: BASO % 0.6 % (0.0-1.0); EOS # 0.2 10^3/uL (0.0-0.5); EOS % 2.5 % (0.0-3.0); HEMATOCRIT 42.7 % (36.0-47.0); LYMPH # 2.4 10^3/uL (1.5-5.0); MEAN CORPUSCULAR HEMOGLOBIN 27.5 pg (27.0-33.0); MEAN CORPUSCULAR HGB CONC 32.8 g/dl (32.0-36.5); MEAN CORPUSCULAR VOLUME 83.7 fl (80.0-96.0); MONO # 0.5 10^3/uL (0.0-0.8); MONO % 7.6 % (2.0-8.0); NEUTROPHILS # 3.4 10^3/uL (1.5-8.5); PLATELET COUNT, AUTOMATED 278 10^3/uL (150-450); WHITE BLOOD COUNT 6.4 10^3/uL (4.0-10.0)
[2023-05-13 08:18] LABS: ALBUMIN 3.7 G/DL (3.2-5.2); ALKALINE PHOSPHATASE 75 U/L (46-116); ALT/SGPT 31 U/L (7.0-40); AST/SGOT 13 U/L (<34); BILIRUBIN,TOTAL 0.6 MG/DL (0.3-1.2); BLOOD UREA NITROGEN 12 MG/DL (9-23); CALCIUM LEVEL 9.2 MG/DL (8.5-10.1); CARBON DIOXIDE LEVEL 30 MMOL/L (20-31); CHLORIDE LEVEL 107 MMOL/L (98-107); CHOLESTEROL LEVEL 224 MG/DL (<200); CHOLESTEROL RISK RATIO 4.08 (<5); GLOMERULAR FILTRATION RATE > 60.0 (>51); GLUCOSE, FASTING 84 MG/DL (60-100); HDL CHOLESTEROL 54.8 MG/DL (>40); LDL CHOLESTEROL 135.6 MG/DL (<100); NON-HDL-C 169.2 MG/DL; POTASSIUM SERUM 4.6 MMOL/L (3.5-5.1); SODIUM LEVEL 141 MMOL/L (136-145); TOTAL PROTEIN 6.5 G/DL (5.7-8.2); TRIGLYCERIDES LEVEL 168 MG/DL (<150)
[2023-05-13 08:20] LABS: THYROID STIMULATING HORMONE 1.675 uIU/ML (0.55-4.78); TOTAL 25(OH) VITAMIN D 24.6 NG/ML (20.0-100.0)
[2023-05-13 08:21] LABS: FREE T4 1.05 NG/DL (0.89-1.76)
== END ==
LOC: M LAB 07:09
PROVIDERS: ATTEND Family Medicine
DX: G47.00 Insomnia, unspecified (principal); R51.9 Headache, unspecified; M35.00 Sjogren syndrome, unspecified; E78.5 Hyperlipidemia, unspecified; E66.9 Obesity, unspecified

== ENCOUNTER → 2024-04-14 | Outpatient (CLI) | payer OTHER ==
[2024-04-14 07:55] LABS: BASO % 0.3 % (0.0-1.0); EOS # 0.2 10^3/uL (0.0-0.5); EOS % 2.4 % (0.0-3.0); HEMATOCRIT 43.6 % (36.0-47.0); HEMOGLOBIN 14.1 g/dl (12.0-15.5); LYMPH # 1.8 10^3/uL (1.5-5.0); LYMPH % 28.9 % (24.0-44.0); MEAN CORPUSCULAR HEMOGLOBIN 26.7 pg (27.0-33.0); MEAN CORPUSCULAR HGB CONC 32.3 g/dl (32.0-36.5); MEAN CORPUSCULAR VOLUME 82.4 fl (80.0-96.0); MONO # 0.4 10^3/uL (0.0-0.8); MONO % 6.8 % (2.0-8.0); NEUTROPHILS # 3.8 10^3/uL (1.5-8.5); NEUTROPHILS % 61.1 % (36.0-66.0); PLATELET COUNT, AUTOMATED 265 10^3/uL (150-450); RED BLOOD COUNT 5.29 10^6/uL (4.00-5.40); WHITE BLOOD COUNT 6.2 10^3/uL (4.0-10.0)
[2024-04-14 08:10] LABS: APPEARANCE, URINE HAZY (CLEAR); BACTERIA, URINE AUTO 1+ (NEGATIVE); BILIRUBIN, URINE AUTO NEGATIVE (NEGATIVE); BLOOD, URINE BLOOD NEGATIVE (NEGATIVE); COLOR, URINE YELLOW (YELLOW); GLUCOSE, URINE (UA) AUTO NEGATIVE (NEGATIVE); KETONE, URINE AUTO NEGATIVE (NEGATIVE); LEUKOCYTE ESTERASE, URINE AUTO 2+ (NEGATIVE); MUCUS, URINE SMALL (NEGATIVE); NITRITE, URINE AUTO NEGATIVE (NEGATIVE); PROTEIN, URINE AUTO 1+ mg/dL (NEGATIVE); RBC, URINE AUTO 1 /HPF (0-3); SPECIFIC GRAVITY URINE AUTO 1.023 (1.002-1.035); SQUAMOUS EPITHELIAL CELL UR AU 4 /HPF (0-6); UROBILINOGEN, URINE AUTO 0.2 mg/dL (0.0-2.0); WBC, URINE AUTO 15 /HPF (0-3)
[2024-04-14 08:27] LABS: ALBUMIN 3.7 G/DL (3.2-5.2); ALKALINE PHOSPHATASE 72 U/L (46-116); ALT/SGPT 40 U/L (7.0-40); AST/SGOT 22 U/L (<34); BILIRUBIN,TOTAL 0.4 MG/DL (0.3-1.2); BLOOD UREA NITROGEN 14 MG/DL (9-23); CALCIUM LEVEL 9.5 MG/DL (8.5-10.1); CARBON DIOXIDE LEVEL 30 MMOL/L (20-31); CHLORIDE LEVEL 109 MMOL/L (98-107); CHOLESTEROL LEVEL 235 MG/DL (<200); CHOLESTEROL RISK RATIO 4.02 (<5); CREATININE FOR GFR 0.79 MG/DL (0.55-1.30); GLOMERULAR FILTRATION RATE > 60.0 (>51); GLUCOSE, FASTING 87 MG/DL (60-100); HDL CHOLESTEROL 58.4 MG/DL (>40); LDL CHOLESTEROL 142.8 MG/DL (<100); NON-HDL-C 176.6 MG/DL; POTASSIUM SERUM 4.3 MMOL/L (3.5-5.1); SODIUM LEVEL 141 MMOL/L (136-145); TOTAL PROTEIN 6.6 G/DL (5.7-8.2); TRIGLYCERIDES LEVEL 169 MG/DL (<150)
[2024-04-14 08:28] LABS: FREE T4 1.05 NG/DL (0.89-1.76); THYROID STIMULATING HORMONE 1.416 uIU/ML (0.55-4.78); TOTAL 25(OH) VITAMIN D 13.7 NG/ML (20.0-100.0)
== END ==
LOC: M LAB 07:13
PROVIDERS: ATTEND Family Medicine
DX: G47.00 Insomnia, unspecified (principal); M35.00 Sjogren syndrome, unspecified; E78.5 Hyperlipidemia, unspecified; E66.9 Obesity, unspecified; R51.9 Headache, unspecified

== ENCOUNTER → 2025-03-02 | Outpatient (CLI) | payer OTHER ==
[2025-03-02 07:44] LABS: APPEARANCE, URINE HAZY (CLEAR); BACTERIA, URINE AUTO 1+ (NEGATIVE); BILIRUBIN, URINE AUTO NEGATIVE (NEGATIVE); BLOOD, URINE BLOOD NEGATIVE (NEGATIVE); COLOR, URINE YELLOW (YELLOW); GLUCOSE, URINE (UA) AUTO NEGATIVE (NEGATIVE); KETONE, URINE AUTO NEGATIVE (NEGATIVE); LEUKOCYTE ESTERASE, URINE AUTO 1+ (NEGATIVE); MUCUS, URINE SMALL (NEGATIVE); NITRITE, URINE AUTO NEGATIVE (NEGATIVE); PROTEIN, URINE AUTO NEGATIVE (NEGATIVE); RBC, URINE AUTO 1 /HPF (0-3); SPECIFIC GRAVITY URINE AUTO 1.018 (1.002-1.035); SQUAMOUS EPITHELIAL CELL UR AU 3 /HPF (0-6); UROBILINOGEN, URINE AUTO 0.2 mg/dL (0.0-2.0); WBC, URINE AUTO 2 /HPF (0-3)
[2025-03-02 07:45] LABS: BASO % 0.5 % (0.0-1.0); EOS # 0.3 10^3/uL (0.0-0.5); EOS % 4.3 % (0.0-3.0); HEMATOCRIT 41.6 % (36.0-47.0); HEMOGLOBIN 13.4 g/dl (12.0-15.5); LYMPH # 1.7 10^3/uL (1.5-5.0); LYMPH % 27.4 % (24.0-44.0); MEAN CORPUSCULAR HEMOGLOBIN 26.6 pg (27.0-33.0); MEAN CORPUSCULAR HGB CONC 32.2 g/dl (32.0-36.5); MEAN CORPUSCULAR VOLUME 82.7 fl (80.0-96.0); MONO # 0.4 10^3/uL (0.0-0.8); MONO % 7.1 % (2.0-8.0); NEUTROPHILS # 3.6 10^3/uL (1.5-8.5); NEUTROPHILS % 60.2 % (36.0-66.0); PLATELET COUNT, AUTOMATED 287 10^3/uL (150-450); RED BLOOD COUNT 5.03 10^6/uL (4.00-5.40)
[2025-03-02 08:16] LABS: ALBUMIN 3.3 G/DL (3.2-5.2); ALKALINE PHOSPHATASE 85 U/L (35-104); ALT/SGPT 37 U/L (7.0-40); AST/SGOT 22 U/L (<34); BILIRUBIN,TOTAL 0.2 MG/DL (0.3-1.2); BLOOD UREA NITROGEN 11 MG/DL (9-23); CALCIUM LEVEL 9.6 MG/DL (8.5-10.1); CARBON DIOXIDE LEVEL 30 MMOL/L (20-31); CHLORIDE LEVEL 105 MMOL/L (98-107); CHOLESTEROL LEVEL 215 MG/DL (<200); CREATININE FOR GFR 0.77 MG/DL (0.55-1.30); GLOMERULAR FILTRATION RATE > 90.0 (>51); GLUCOSE, FASTING 107 MG/DL (60-100); HDL CHOLESTEROL 42.1 MG/DL (>40); LDL CHOLESTEROL 131.7 MG/DL (<100); NON-HDL-C 172.9 MG/DL; POTASSIUM SERUM 4.5 MMOL/L (3.5-5.1); SODIUM LEVEL 143 MMOL/L (136-145); TOTAL PROTEIN 6.6 G/DL (5.7-8.2); TRIGLYCERIDES LEVEL 206 MG/DL (<150)
[2025-03-02 08:20] LABS: THYROID STIMULATING HORMONE 1.381 uIU/ML (0.55-4.78)
[2025-03-02 08:21] LABS: FREE T4 1.03 NG/DL (0.89-1.76); TOTAL 25(OH) VITAMIN D 45.4 NG/ML (20.0-100.0)
== END ==
LOC: M LAB 07:10
PROVIDERS: ATTEND Family Medicine
DX: G47.00 Insomnia, unspecified (principal); M35.00 Sjogren syndrome, unspecified; E78.5 Hyperlipidemia, unspecified; E66.9 Obesity, unspecified; R51.9 Headache, unspecified

== ENCOUNTER 2025-11-08 08:59 | Emergency (ER) | payer OTHER ==
[~2025-11-08] VITALS: Ht 154.9 cm; Wt 90.9 kg
[2025-11-08] MEDS ORDERED: ZOLP10TA11 PO (10:24)
[2025-11-08] MEDS: KETOROLAC 30 MG/ML 1 ML VIAL IM ONE (12:30)
[2025-11-08] MEDS ORDERED: INDO50CA91 PO (14:14)
[2025-11-08 14:21] VITALS: BP 135/80; TEMP 97.2; O2SAT 99
== END 2025-11-08 14:29 | disposition home or self-care (01) ==
LOC: M ED 08:59
DX: M71.22 Synovial cyst of popliteal space [Baker], left knee (principal); M17.12 Unilateral primary osteoarthritis, left knee; Z79.899 Other long term (current) drug therapy; Z88.0 Allergy status to penicillin
CPT/HCPCS: 73564; 93971; 96372; 99284; J1885